=== PATIENT | female | born 1995 | race African-American/Black ===

== ENCOUNTER 2017-06-13 15:09 | Emergency (ER) | payer MEDICAID ==
[~2017-06-13] VITALS: Ht 175.3 cm; Wt 95.5 kg
[~2017-06-13 15:09] MED LIST: IBUP600 PO; LABE100 PO
[2017-06-13 15:10] VITALS: BP 147/84; PULSE 96; RESP 18; TEMP 98.7; O2SAT 99
[2017-06-13 19:24] LABS: BLOOD, URINE NEG (NEG); COMMENT (UR) CULT NOT INDICATED; CULTURE IF INDICATED CULT NOT INDICATED; GLUCOSE,URINE NEG (NEG); KETONE, URINE 40 mg/dL (NEG); MUCUS URINE MOD /lpf (OCC); NITRITE,URINE NEG (NEG); PH, URINE 6.5 (5.0-8.5); SQUAMOUS EPITHELIAL CELL URINE 12 /hpf (0-5); URINE COLOR YELLOW (YELLW/STRAW)
[2017-06-13] MEDS ORDERED: ROBA500T PO (20:27)
--- NOTE | 2017-06-13 20:27 | PD ---
HPI Chief Complaint: Flank/Kidney Pain Time Seen by Provider: 20:17 Travel History International Travel<30 days: No Contact w/Intl Traveler<30days: No Traveled to known affect area: No History of Present Illness HPI 21-year-old female presents to the emergency room for evaluation of bilateral flank pain for the past week. Started on the left first and progressed to the right a few days later. States it is worse with certain range of motion. Occasionally she feels the worst pain in the middle of her spine. Pain is constant, dull and achy. Patient states she has been drinking enough water. She occasionally takes ibuprofen for pain. Denies any trauma or injury. She has had some nausea but no vomiting. Denies fever, chills, dysuria, urgency, and frequency. Denies history of kidney stones or kidney disease. Last menstrual cycle was last month. She does have history of spina bifida. She does not take any medications daily for anything. PFSH Past Medical History Asthma: Yes Diminished Hearing: No Headaches: Yes Hypertension: Yes Neurologic: Yes (SPINA BIFIDA, HYDROCEPHALUS, MYELOMENINGOCELE) Respiratory: Yes Immunizations Current: Yes (states utd) Migraines: Yes ?: Unknown LMP: 08/2016 Menopausal: No : 1 Para: 1 Past Surgical History Surgical History: No Previous Surgery Abdominal Surgery: Yes (UNKNOWN, LAP) Neurologic Surgery: Yes (vp design shunt, sx r/t spina bifida) Social History Alcohol Use: No Tobacco Use: No (never) Substance Use: No Allergies-Medications (Allergen,Severity, Reaction): Coded Allergies: No Known Allergies (Verified , 07/30/15) Reported Meds & Prescriptions Reported Meds & Active Scripts Active Robaxin (Methocarbamol) 500 Mg Tab 500 Mg PO Q8HR Trandate 100 mg Tab (Labetalol HCl) 100 Mg Tab 300 Mg PO Q12 Motrin 600 Mg Tab (Ibuprofen) 600 Mg Tab 600 Mg PO Q6H Review of Systems Except as stated in HPI: all other systems reviewed are Neg Physical Exam Narrative GENERAL: Well-nourished, well-developed female in no acute distress. Afebrile. Ambulatory. SKIN: Focused skin assessment warm/dry. No erythema or ecchymosis. HEAD: Normocephalic. EYES: No scleral icterus. No injection or drainage. NECK: Supple, trachea midline. No JVD or lymphadenopathy. CARDIOVASCULAR: Regular rate and rhythm without murmurs, gallops, or rubs. RESPIRATORY: Breath sounds equal bilaterally. No accessory muscle use. BACK: Nontender without obvious deformity. No CVA tenderness. Data Data Last Documented VS Vital Signs Date Time Temp Pulse Resp B/P (MAP) Pulse Ox O2 Delivery O2 Flow Rate FiO2 06/13/17 15:10 98.7 96 18 147/84 (105) 99 Room Air Orders Orders Urinalysis - C+S If Indicated (06/13/17 15:41) Ed Urine Pregnancytest Poc (06/13/17 15:41) Ketorolac Inj (Toradol Inj) (06/13/17 20:30) Ed Discharge Order (06/13/17 20:27) Labs Laboratory Tests Test 06/13/17 18:14 Urine Color YELLOW Urine Turbidity HAZY Urine pH 6.5 Urine Specific [place] 1.023 Urine Protein TRACE mg/dL Urine Glucose (UA) NEG mg/dL Urine Ketones 40 mg/dL Urine Occult Blood NEG Urine Nitrite NEG Urine Bilirubin NEG Urine Urobilinogen LESS THAN 2.0 MG/DL Urine Leukocyte Esterase NEG Urine RBC LESS THAN 1 /hpf Urine WBC 4 /hpf Urine Squamous Epithelial Cells 12 /hpf Urine Amorphous Sediment RARE Urine Mucus MOD /lpf Microscopic Urinalysis Comment CULT NOT INDICATED MDM Medical Decision Making Medical Screen Exam Complete: Yes Emergency Medical Condition: Yes Medical Record Reviewed: Yes Differential Diagnosis UTI, pyelonephritis, renal colic, kidney stone, musculoskeletal pain Narrative Course 21-year-old female with a history of spina bifida presents to the emergency room for evaluation of bilateral flank pain as week. Started on left and has progressed to right. Worse with certain range of motion. Occasionally occurs in the middle of her back. She denies any urinary symptoms or evidence of systemic signs of infection. Vital signs stable. Physical exam reassuring. No CVA tenderness or midline tenderness of the spine. UA shows no evidence of infection. History and physical exam are consistent with musculoskeletal back pain. Patient was given Toradol in the emergency room. Discharged with prescription for Robaxin. Told to follow up with her primary care physician for outpatient labs of kidney function if symptoms persist given her spina bifida. Told to return for worsening symptoms. She understands and agrees to plan. Diagnosis Primary Impression: Back strain Qualified Codes: S39.012A - Strain of muscle, fascia and tendon of lower back , initial encounter Referrals: Primary Care Physician Additional Instructions: Rest and drink plenty of fluids. Take Robaxin as directed, as needed for pain. Take ibuprofen with food as directed, as needed for pain. Apply ice to the affected area for 20 minutes at a time, as needed for pain and swelling. Follow-up with a primary care physician for outpatient imaging and/or labs if symptoms persist. Return to the emergency room for worsening symptoms. Scripts Methocarbamol (Robaxin) 500 Mg Tab 500 MG PO Q8HR for Muscle Spasm, #14 TAB 0 Refills Prov: Tylor Galindo MD 06/13/17 Disposition: 01 DISCHARGE HOME Condition: Stable Sandy Alaniz Jun 13, 2017 20:27
[2017-06-13] MEDS ORDERED: KETOROLAC TROMETHAMINE 60 MG/2 ML (IM) VIAL IM ONE (20:30)
== END 2017-06-13 20:54 | disposition home or self-care (01) ==
LOC: NEPK 15:09
DX: S39.012A Strain of muscle, fascia and tendon of lower back, initial encounter (principal); X58.XXXA Exposure to other specified factors, initial encounter
CPT/HCPCS: 81001; 84703; 96372